=== PATIENT | male | born 1990 | race Caucasian/White ===

== ENCOUNTER 2020-07-12 14:49 | Emergency (ER) | payer SELFPAY ==
[~2020-07-12 14:49] MED LIST: BENADRYL 25MG C25 MG PO; MEDROL4 MG PO; OMEPRAZOLE40 MG PO
== END 2020-07-12 17:06 | disposition home or self-care (01) ==
LOC: ER1 14:49
DX: Z53.21 Procedure and treatment not carried out due to patient leaving prior to being seen by health care provider (principal)

== ENCOUNTER 2021-02-12 01:50 | Emergency (ER) | payer OTHER ==
[2021-02-12] MEDS ORDERED: LODINE CAP 300300 MG PO (02:18)
[2021-02-12] MEDS ORDERED: CEPHALEXIN500 MG PO (02:18)
[2021-02-12] MEDS ORDERED: BACTRIM DS TAB1 EACH PO (02:18)
== END 2021-02-12 02:40 | disposition home or self-care (01) ==
LOC: ER1 01:50
DX: L02.31 Cutaneous abscess of buttock (principal); L03.317 Cellulitis of buttock; F17.210 Nicotine dependence, cigarettes, uncomplicated
CPT/HCPCS: 10060; 87070; 87077; 87186; 87205; 99283